=== PATIENT | female | born 1955 | race Caucasian/White ===

== ENCOUNTER 2021-03-08 22:58 | Emergency (ER) | payer OTHER ==
[~2021-03-08] VITALS: Ht 172.7 cm; Wt 136.1 kg
[2021-03-09] MEDS ORDERED: ACETAMINOPHEN 325 MG TAB PO ONE
[2021-03-09] MEDS ORDERED: ACETAMINOPHEN 500 MG TAB PO ONE (00:06)
[2021-03-09 00:37] VITALS: BP 173/85
== END 2021-03-09 01:04 | disposition home or self-care (01) ==
LOC: EDBD 22:58 → ER 22:58
DX: S01.81XA Laceration without foreign body of other part of head, initial encounter (principal); S60.042A Contusion of left ring finger without damage to nail, initial encounter; J45.909 Unspecified asthma, uncomplicated; E11.9 Type 2 diabetes mellitus without complications; I10 Essential (primary) hypertension; R51.9 Headache, unspecified; Z88.2 Allergy status to sulfonamides; W01.0XXA Fall on same level from slipping, tripping and stumbling without subsequent striking against object, initial encounter; Y93.89 Activity, other specified; Y92.89 Other specified places as the place of occurrence of the external cause; Y99.8 Other external cause status
CPT/HCPCS: 12011; 70450; 72125; 73130